=== PATIENT | female | born 1955 | race Hispanic/Latino ===

== ENCOUNTER 2022-01-26 15:29 | Emergency (ER) | payer BC, OTHER ==
[~2022-01-26] VITALS: Ht 144.8 cm; Wt 80.7 kg
[~2022-01-26 15:29] MED LIST: IBUP-2070 PO; OMEP40CA21 PO
[2022-01-26] MEDS ORDERED: ACET-2079 PO (17:55)
[2022-01-26] MEDS ORDERED: CLIN-141 PO (17:55)
[2022-01-26] MEDS ORDERED: CLINDAMYCIN 150 MG CAP PO ONE (18:00)
[2022-01-26 18:25] VITALS: BP 165/99
== END 2022-01-26 18:41 | disposition home or self-care (01) ==
LOC: EDH 15:29
DX: K04.7 Periapical abscess without sinus (principal); Z88.8 Allergy status to other drugs, medicaments and biological substances; Z79.899 Other long term (current) drug therapy; Z98.890 Other specified postprocedural states